=== PATIENT | male | born 1955 | race Caucasian/White ===

== ENCOUNTER 2017-06-25 08:49 | Inpatient (IN) ==
[2017-06-21 12:35] LABS: Appearance,Urine CLEAR; Bilirubin,Urine NEG (NEG); Color,Urine YELLOW; Glucose,Urine (UA) NEGATIVE (NEG); Leukocyte Esterase,Urine NEG /uL (NEG); Protein,Urine NEG (NEG); Specific Gravity,Urine 1.016 (1.000-1.035); Urine Blood NEG mg/dL (<0.03); Urobilinogen,Urine NEG (NEG)
[2017-06-21 13:43] LABS: Basophils # (Auto) 0 K/mcL (0.0-0.3); Basophils % (Auto) 0.4 % (0.0-2.0); Eosinophils # (Auto) 0.4 K/mcL (0.0-0.7); Eosinophils % (Auto) 3.9 % (0.0-7.0); Granulocytes % (Auto) 66.5 % (38.0-78.0); Lymphocytes # (Auto) 2.3 K/mcL (1.5-4.8); Lymphocytes % (Auto) 24.8 % (15.5-49.0); Mean Cell Volume 83.2 fL (80.0-100.0); Mean Corpuscular HGB Conc 33.7 g/dL (31.0-36.0); Mean Corpuscular Hemoglobin 28.1 pg (26.0-34.0); Monocytes # (Auto) 0.4 K/mcL (0.1-0.9); Monocytes % (Auto) 4.4 % (1.0-12.0); Platelet Count 290 K/mcL (140-440); RBC 5.24 M/mcL (4.50-5.90); Red Cell Distribution Width 15.9 % (11.5-14.5)
[2017-06-21 14:08] LABS: Blood Urea Nitrogen 16 mg/dl (6-20)
[~2017-06-25 08:49] MED LIST: ACETAMINOPHEN 500 MG TABLET PO SCH; CELECOXIB 200 MG CAPSULE PO SCH; KETOROLAC 30 MG, ROPIVACAINE HCL/PF 49.5 ML, EPINEPHrine 0.5 MG, 0.9 % SODIUM CHLORIDE ... IJ SCH; PREGABALIN 75 MG CAPSULE PO SCH; ceFAZolin 1 GM VIAL IV SCH; oxyCODONE 10 MG TAB.ER.12H PO SCH
[2017-06-25] MEDS ORDERED: GENTAMICIN SULFATE 800 MG/20 ML VIAL IR ONE (11:52)
[2017-06-25] MEDS ORDERED: BUPIVACAINE PF 0.5% 10 ML VIAL IJ ONE (13:05)
[2017-06-25] MEDS ORDERED: ONDANSETRON 4 MG/2 ML VIAL IV ONE (13:05)
[2017-06-25] MEDS ORDERED: ePHEDrine 50 MG/ML AMPUL IV ONE (13:05)
[2017-06-25] MEDS ORDERED: LIDOCAINE HCL/PF 100 MG/5 ML SYRINGE IV ONE (13:05)
[2017-06-25] MEDS ORDERED: PROPOFOL 200 MG/20 ML VIAL IV ONE (13:05)
[2017-06-25] MEDS ORDERED: TRANEXAMIC ACID 1,000 MG/10 ML VIAL IV ONE (13:05)
[2017-06-25] MEDS ORDERED: MIDAZOLAM 5 MG/5 ML VIAL IV ONE (13:05)
[2017-06-25] MEDS ORDERED: PHENYLEPHRINE 10 MG/ML VIAL IV ONE (13:05)
[2017-06-25] MEDS ORDERED: DEXAMETHASONE 10 MG/ML VIAL IV ONE (13:05)
[2017-06-25] MEDS ORDERED: fentaNYL 100 MCG/2 ML VIAL IV PRN (14:04)
[2017-06-25] MEDS ORDERED: NALOXONE HCL 0.4 MG/ML VIAL IV PRN (14:04)
[2017-06-25] MEDS ORDERED: METOPROLOL TARTRATE 5 MG/5 ML VIAL IV PRN (14:04)
[2017-06-25] MEDS ORDERED: ONDANSETRON 4 MG/2 ML VIAL IV PRN ×2 (14:04→14:39)
[2017-06-25] MEDS ORDERED: diphenhydrAMINE 50 MG/ML VIAL IV PRN (14:04)
[2017-06-25] MEDS ORDERED: IPRATROPIUM/ALBUTEROL 3 ML AMPUL.NEB NEB PRN (14:04)
[2017-06-25] MEDS ORDERED: ATROPINE SULFATE 0.4 MG/ML VIAL IV PRN (14:04)
[2017-06-25] MEDS ORDERED: HYDROmorphone 2 MG/ML VIAL IV PRN ×2 (14:04→14:39)
[2017-06-25] MEDS ORDERED: KETOROLAC 30 MG/ML VIAL IV PRN (14:04)
[2017-06-25] MEDS ORDERED: FLUMAZENIL 0.1 MG/ML ML IV PRN (14:04)
[2017-06-25] MEDS ORDERED: ePHEDrine 50 MG/ML AMPUL IV PRN (14:04)
[2017-06-25] MEDS ORDERED: MEPERIDINE 25 MG/ML SYRINGE IV PRN (14:04)
[2017-06-25] MEDS ORDERED: METHOCARBAMOL 1,000 MG/10 ML VIAL IV PRN (14:04)
[2017-06-25] MEDS ORDERED: LACTATED RINGERS 1,000 ML IV SCH (14:15)
[2017-06-25] MEDS ORDERED: POLYETHYLENE GLYCOL 3350 17 GM PACKET PO PRN (14:39)
[2017-06-25] MEDS ORDERED: FLEETS ADULT ENEMA PR PRN (14:39)
[2017-06-25] MEDS ORDERED: ONDANSETRON ODT 4 MG TABLET SL PRN (14:39)
[2017-06-25] MEDS ORDERED: ACETAMINOPHEN 325 MG TABLET PO PRN (14:39)
[2017-06-25] MEDS ORDERED: MAGNESIUM HYDROXIDE 30 ML ORAL.SUSP PO PRN (14:39)
[2017-06-25] MEDS ORDERED: BENZOCAINE/MENTHOL 1 LOZENGE PO PRN (14:39)
[2017-06-25] MEDS ORDERED: MAG HYDROX/AL HYDROX/SIMETH 30 ML ORAL.SUSP PO PRN (14:39)
[2017-06-25] MEDS ORDERED: TRANEXAMIC ACID 1,000 MG/10 ML VIAL IV SCH (14:39)
[2017-06-25] MEDS ORDERED: BISACODYL 10 MG SUPP.RECT PR PRN (14:39)
[2017-06-25] MEDS ORDERED: NAPROXEN (PP) 200MG TABLET (#24) PO PRN (14:45)
[2017-06-25] MEDS ORDERED: OMEPRAZOLE 20 MG CAPSULE PO PRN (14:45)
--- NOTE | 2017-06-25 15:23 | Brief Operative Note ---
Date of procedure: 06/25/17 Pre-op diagnosis: left knee djd Post-op diagnosis: same Procedure: left knee robotic tka Grafts/Implants: Yes Anesthesia: GETA Findings: severe djd Complications: none Surgeon: Evert Wild Telemedicine Physician: Reilly Cali Estimated blood loss (cc): 20 Tourniquet Time (Minutes): 60 Specimens Removed/Pathology: none sent Condition: stable Disposition: PACU
--- NOTE | 2017-06-25 16:07 | XRay Report ---
CLINICAL INFORMATION: Reason for Exam:Post-Op Total Knee COMPARISON: None. FINDINGS: Total knee prostheses is anatomically aligned. No osseous abnormality. Soft tissue swelling noted IMPRESSION: Negative Interpreted and Authenticated by: Dionisio Ritchie 06/25/17
--- NOTE | 2017-06-25 16:14 | Operative Note ---
DATE OF OPERATION: 06/25/2017 PREOPERATIVE DIAGNOSIS: Left knee degenerative arthritis with severe medial compartment and the patellofemoral joint. POSTOPERATIVE DIAGNOSIS: Left knee degenerative arthritis with severe medial compartment and the patellofemoral joint. PROCEDURE: Left total knee arthroplasty with the JACQUELINE robot. SURGEON: Evert Wild M.D. [employer]: Reilly Cali PA-C. ANESTHESIA: General LMA anesthesia. TOURNIQUET TIME: 60 minutes. DESCRIPTION OF PROCEDURE: The patient was brought to the operating room. The left leg was sterilely prepped and draped in the usual sterile fashion. A time-out was performed. Preop antibiotics and tranexamic acid were given. We then made a midline incision, a midvastus approach was performed. 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 With this, we started the surgery. We made two pins holes above the knee and below the knee and registered the center of hip rotation, medial and lateral malleoli, and 30 points registered in the knee and tibia. Intra-articular pins were registered. We balanced the knee at 15 and 90 degrees, and once perfectly balanced we then brought in the robot and made these cuts appropriate for the preplanned surgery. Once done, we then trialed the implants, performed a small amount of soft tissue release of the medial collateral ligament because of the severity of the varus malalignment. This brought the patient back to within 2 degrees of being perfectly aligned. We irrigated thoroughly. We then cemented into place a size 6 tibial baseplate, size 5 femur, size 11 poly, and a 36 mm patellar button. The patient tolerated this well. We kept the knee at 45 degrees until all cement was dry. Any excess cement had been removed. We closed the midvastus approach with #1 Stratafix x2 sutures and then closed the skin with 2-0 Vicryl and adhesive closure. No complications. Blood loss was 20 mL. RBH:emilie Job ID: [id number] Doc ID: [id number] Evert Wild MD
[2017-06-25] MEDS: 0.45 % SODIUM CHLORIDE 1,000 ML IV SCH (16:16)
[2017-06-25] MEDS: KETOROLAC 15 MG/ML VIAL IV SCH ×2 (17:36→23:24)
[2017-06-25] MEDS: ceFAZolin 1 GM VIAL IV SCH (20:05)
[2017-06-25] MEDS: ASPIRIN 325 MG ENTERIC COATED TABLET PO SCH (20:07)
[2017-06-25] MEDS: DOCUSATE SODIUM 100 MG CAPSULE PO SCH (20:07)
[2017-06-25] MEDS: 0.9 % SODIUM CHLORIDE 10 ML SYRINGE IV SCH (20:34)
[2017-06-25] MEDS ORDERED: SENNOSIDES 1 TABLET PO SCH (21:00)
[2017-06-25] MEDS ORDERED: ATORVASTATIN 20 MG TABLET PO SCH (21:00)
[2017-06-25] MEDS ORDERED: TEMAZEPAM 15 MG CAPSULE PO PRN (21:00)
[2017-06-25] MEDS: HYDROcodone/APAP 10/325MG TABLET PO PRN (22:12)
[2017-06-26] MEDS: 0.45 % SODIUM CHLORIDE 1,000 ML IV SCH ×3 (03:14→11:15)
[2017-06-26] MEDS: ceFAZolin 1 GM VIAL IV SCH (03:43)
[2017-06-26] MEDS: KETOROLAC 15 MG/ML VIAL IV SCH ×2 (05:46→11:40)
[2017-06-26] MEDS: 0.9 % SODIUM CHLORIDE 10 ML SYRINGE IV SCH (06:07)
--- NOTE | 2017-06-26 07:16 | Orthopedic Progress Note ---
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 Chief Complaint: [Pt is stable this morning on post operative day 1 without any significant concerns or complaints. Patients vital signs have remained stable. Patients dressing is dry and is grossly instact from a neurovascular and motor standpoint. Patients 10 point ROS is otherwise negative. ] Objective Vital signs: Vital Signs Temp Pulse Pulse Pulse Resp BP BP 06/26/17 06:23 98.2 F 18 103/62 06/26/17 03:29 98.0 F 81 18 120/67 06/25/17 23:35 98.1 F 88 87 87 18 104/66 06/25/17 23:00 06/25/17 22:00 06/25/17 21:03 14 06/25/17 20:12 06/25/17 20:00 97.4 F 71 14 130/80 06/25/17 19:02 14 06/25/17 18:22 97.7 F 18 120/77 06/25/17 17:20 132/78 06/25/17 16:40 89 121/85 06/25/17 16:10 130/68 06/25/17 15:44 98.8 F 96 H 16 135/77 06/25/17 15:40 98 H 19 135/79 06/25/17 15:25 94 H 15 127/86 06/25/17 15:19 98.9 F 95 H 16 127/77 06/25/17 08:45 97.6 F 16 132/68 Pulse Ox 06/26/17 06:23 96 06/26/17 03:29 94 06/25/17 23:35 91 06/25/17 23:00 92 06/25/17 22:00 92 06/25/17 21:03 93 06/25/17 20:12 92 06/25/17 20:00 93 06/25/17 19:02 93 06/25/17 18:22 97 06/25/17 17:20 90 06/25/17 16:40 92 06/25/17 16:10 93 06/25/17 15:44 93 06/25/17 15:40 97 03/02/18 15:25 100 06/25/17 15:19 93 06/25/17 08:45 98 Intake and Output 06/25/17 06/26/17 06/26/17 21:59 05:59 13:59 Intake Total 1949 / 1949 1800 / 1800 Output Total 625 / 625 500 / 500 Balance 1325 / 1325 1300 / 1300 Intake: IV 1000 / 1000 Sodium Chloride 0.45% 1,000 ml 1000 / 1000 @ 100 mls/hr IV .Q10H VLADIMIR Rx#: [id number] GI Tube Flush 800 / 800 IV - Manual Only 1949 Output: Void Amount 325 / 325 500 / 500 Emesis 200 / 200 Estimated Blood Loss 100 / 100 Other: # Emeses 2 Weight 230 lb Intake & Output: Intake & Output 06/25/17 06/26/17 06/26/17 21:59 05:59 13:59 Intake Total 1949 1800 / 1800 Output Total 625 / 625 500 / 500 Balance 1325 / 1325 1300 / 1300 Weight 230 lb Intake: IV 1000 / 1000 Sodium Chloride 0.45% 1,000 ml 1000 / 1000 @ 100 mls/hr IV .Q10H VLADIMIR Rx#: [id number] GI Tube Flush 800 / 800 IV - Manual Only 1949 Output: Void Amount 325 / 325 500 / 500 Emesis 200 / 200 Estimated Blood Loss 100 / 100 Other: # Emeses 2 Incision: Yes healing Incision clean and dry: Yes Dressing: Yes clean, Yes dry Weight bearing status: full Neurological exam IM: Yes motor sensory intact, Yes neurovascular intact Extremities exam IM: Yes Foot pink and warm, Yes neurovascular intact - Labs CBC & BMP: 06/26/17 04:28 06/21/17 10:34 Labs: Orthopedic Labs 06/21/17 10:34 PT 13.2 INR 1.0 APTT 32 06/26/17 06/21/17 04:28 10:35 Hgb 14.7 Hct 34.5 L 43.6 Assessment and Plan (1) Hx of total knee arthroplasty The patient has been educated regarding dressing care, Physical Therapy recommendations, home exercises, restrictions, and follow up appointments. The patient has had all necessary DME prescribed. The patient has remained stable during their hospital course. The patient was discharge with a stable exam. Leave Dermabond patch intact until followup Status: Acute
--- NOTE | 2017-06-26 07:19 | Discharge Summary ---
Ortho Discharge - TKA - Patient Instructions Diet: Regular Diet Activity: activity as tolerated, weight bearing as tolerated Total Knee Protocol: For Total Knee: Start ROM TAYLER with stationary bike or rocking chair. Work on gaining full extension of knee. Posterior dislocation precautions provided. Hip abductor strengthening and gait training instructions provided. Apply Cryocuff as instructed. Dressing Care: May shower in 2 days Additional Instructions: CPM for home use.Discharge Instructions: - Problem Maintenance (1) Hx of total knee arthroplasty Status: Acute - Follow Up Plan Follow Up Appointments: Reilly Cali PA-C [Physician Typecasting Machine Operator] - 07/08/17 9:30 am Disposition: Home, Self-Care Prognosis: Good Rehab Potential: Good I certify that the patient requires SNF services: No Overall status at discharge: patient is progressing back to baseline - Orders For Discharge Prescriptions: Aspirin [Ecotrin] 325 mg PO BID #60 tab.ec Docusate Sodium [Colace] 100 mg PO BID #60 cap HYDROcodone/APAP 10/325MG [Elizabeth 10-325Mg] 1 - 2 tab PO Q4HP PRN #75 tab PRN Reason: Pain Level 3-6
[2017-06-26] MEDS ORDERED: FISH OIL 1,000 MG CAPSULE PO SCH (09:00)
[2017-06-26] MEDS ORDERED: MULTIVIT,THER IRON,CA,FA & MIN 1 TABLET PO SCH (09:00)
[2017-06-26] MEDS ORDERED: LOSARTAN 50 MG TABLET PO SCH (09:00)
[2017-06-26] MEDS ORDERED: HYDROCHLOROTHIAZIDE 12.5 MG CAPSULE PO SCH (09:00)
[2017-06-26] MEDS: DOCUSATE SODIUM 100 MG CAPSULE PO SCH (09:21)
[2017-06-26] MEDS: ASPIRIN 325 MG ENTERIC COATED TABLET PO SCH (09:22)
[2017-06-26] MEDS: HYDROcodone/APAP 10/325MG TABLET PO PRN (15:16)
== END 2017-06-26 15:30 | disposition home or self-care (01) | DRG 470 ==
LOC: MEDSUR 08:49
PROVIDERS: ADMIT Orthopaedic Surgery; ATTEND Orthopaedic Surgery